=== PATIENT | male | born 1975 | race Caucasian/White ===

== ENCOUNTER 2017-05-31 05:27 | Emergency (ER) | payer BC ==
[~2017-05-31] VITALS: Ht 167.6 cm; Wt 85.7 kg
[2017-05-31 05:35] VITALS: Ht 167.6 cm; Wt 85.7 kg
[2017-05-31 07:01] VITALS: BP 118/68
== END 2017-05-31 07:01 | disposition home or self-care (01) ==
LOC: ED 05:27
DX: S39.012A Strain of muscle, fascia and tendon of lower back, initial encounter (principal); X58.XXXA Exposure to other specified factors, initial encounter; Y93.89 Activity, other specified; Y92.89 Other specified places as the place of occurrence of the external cause; Y99.8 Other external cause status
CPT/HCPCS: J1885; J3010; J7512; Q0162

== ENCOUNTER 2018-09-16 22:53 | Emergency (ER) | payer BC ==
[~2018-09-16] VITALS: Ht 167.6 cm; Wt 86.2 kg
[2018-09-16 23:02] VITALS: Ht 167.6 cm; Wt 86.2 kg
[2018-09-16 23:40] LABS: BASOPHIL % 0.9 % (0-2); PLATELET COUNT 186 x10^3mcL (130-400); RED CELL DISTRIBUTION WIDTH 13.9 % (11.5-14.5)
[2018-09-16 23:50] LABS: CALCIUM 8.4 mg/dL (8.5-10.1); CARBON DIOXIDE 27.8 mmol/L (21-32); CHLORIDE SERUM 105 mmol/L (98-107); CREATININE SERUM 0.9 mg/dL (0.7-1.3); GFR1 > 60 mL/min; GLUCOSE SERUM 95 mg/dL (74-106); POTASSIUM SERUM 3.4 mmol/L (3.5-5.1); SODIUM SERUM 139 mmol/L (136-145)
[2018-09-16 23:55] LABS: ALBUMIN 4.2 g/dL (3.4-5.0); ALKALINE PHOSPHATASE 93 U/L (46-116); ALT/SGPT 81 U/L (16-63); AMYLASE 84 U/L (25-115); AST/SGOT 44 U/L (15-37); BILIRUBIN TOTAL 0.3 mg/dL (0.20-1.00); LIPASE 226 IU/L (73-393); TOTAL PROTEIN, SERUM 7.4 g/dL (6.4-8.2)
[2018-09-17 01:35] VITALS: BP 125/75
== END 2018-09-17 01:35 | disposition home or self-care (01) ==
LOC: ED 22:53
PROVIDERS: Specialist
DX: M54.6 Pain in thoracic spine (principal); F41.9 Anxiety disorder, unspecified
CPT/HCPCS: 82962; J1885; Q0092